=== PATIENT | male | born 1945 | race Caucasian/White ===

== ENCOUNTER 2023-04-29 15:52 | Observation (INO) | payer MEDICARE, MEDICAID, SELFPAY ==
[2023-04-29] VITALS (10 sets, daily range): BP systolic 97–143; BP diastolic 64–90; PULSE 108–133; RESP 18–20; TEMP 36.6–36.8; O2SAT 93–97; BMI 41.9
--- NOTE | 2023-04-29 16:03 | XRR_ITS ---
PROCEDURE INFORMATION: Exam: XR Chest Exam date and time: 04/29/2023 4:07 PM Age: 77 years old Clinical indication: Shortness of breath; Additional info: SOB TECHNIQUE: Imaging protocol: Radiologic exam of the chest. Views: 1 view. COMPARISON: No relevant prior studies available. FINDINGS: Lungs: Shallow lung volumes. Bibasilar opacities are noted, more prominent laterally than medially. Pleural spaces: No large pleural effusion evident. Heart/Mediastinum: Cardiomediastinal silhouette does not appear enlarged allowing for AP portable shallow inspiratory technique. Bones/joints: No acute osseous abnormality identified. XR/XR chest 1V portable [id number] IMPRESSION: 1. Examination limited by shallow inspiratory depth. 2. Bibasilar pulmonary opacities , which may relate to atelectasis, pneumonia, or aspiration. Clinical correlation recommended, follow-up radiographs are recommended to confirm clearance.
--- NOTE | 2023-04-29 16:03 | ECG_ITS ---
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 Measurements Intervals [place] Rate: 128 P: 0 AR: 0 QRS: -19 QRSD: 108 T: 235 QT: 334 QTc: 489 Interpretive Statements ATRIAL FLUTTER WITH RAPID VENTRICULAR RESPONSE LOW QRS VOLTAGE IN PRECORDIAL LEADS [QRS DEFLECTION < 1.0 mV IN CHEST LEADS] POSSIBLE ANTERIOR MYOCARDIAL INFARCTION , OF INDETERMINATE AGE [30 ms Q WAVE IN V3/V4, OR R < 0.2 mV IN V4] MODERATE T-WAVE ABNORMALITY, CONSIDER INFERIOR ISCHEMIA [-0.1+ mV T-WAVE IN II/aVF] No previous ECG available for comparison Electronically Signed On 04-30-2023 8:18:05 HOTEL RECEPTIONIST by Shankar Covington M.D. [id number]
--- NOTE | 2023-04-29 16:04 | W.ED.SOB ---
HPI - SOB/Dyspnea General: Chief Complaint: Shortness of Breath/Dyspnea Stated Complaint: SOB; COUCH Time Seen by Provider: 04/29/23 15:53 Source: patient and EMS Mode of arrival: EMS Limitations: no limitations History of Present Illness: HPI Narrative: This patient was transported from [facility] where he normally lives for increasing shortness of breath wheezing cough over the past several days. He has not any recent chest pain or fevers that he is aware. He states he had decreased appetite. He denies any abdominal pain nausea, vomiting, diarrhea. He has a history of CHF as well as coronary artery disease. He also has underlying history of COPD. He is unaware of any other illness in the long-term [facility] facility at this time. He states he has received a flu vaccine in [employer] this past year. States his last hospitalization for respiratory problems was over a year ago. MD elicited complaint: shortness of breath and cough Pertinent past history: COPD Known history of: COPD Associated symptoms: Deny abdominal pain, chest pain, extremity pain, fever(s), nausea, palpitations, polydipsia, polyuria, syncope or vomiting Review of Systems Const: Denies: fever(s) or chills Eyes: Denies: change in vision ENMT: Denies: throat pain, odynophagia, nasal discharge or nasal congestion Card: Denies: chest pain, palpitations, irregular heart rhythm, syncope or pre-syncope Resp: Reports: dyspnea, productive cough and wheezing GI: Denies: abdominal pain, nausea, vomiting or diarrhea : Denies: flank pain, difficulty urinating, dysuria or urinary frequency Musc: Denies: neck pain, back pain, extremity pain or extremity swelling Skin/Breast: Denies: rash Neuro: Denies: headache(s), numbness in extremities or weakness in extremities Psych: Denies: anxiety or depression Endo: Denies: polyuria or polydipsia Physical Exam Narrative: EXAM NARRATIVE: The patient is alert he makes good eye contact speaks in goal-directed sentences and fluent fashion Const: COMMON NORMALS: no acute distress, patient oriented x3 and alert GENERAL APPEARANCE: cooperative NUTRITIONAL APPEARANCE: obese and overweight HENMT: COMMON NORMALS: normocephalic, Normal nasal mucous membranes and turbinates present, moist oral mucous membranes and oropharynx normal HEAD & SCALP: normocephalic NOSE: Normal nasal mucous membranes and turbinates present Eye: COMMON NORMALS: Equal, round and reactive pupils present, EOMs intact bilaterally, conjunctivae normal and no scleral icterus CONJUNCTIVA: Yes conjunctivae normal PUPIL: Yes Equal, round and reactive pupils present Neck/C-Spine: COMMON NORMALS: full ROM, no JVD and Thyroid normal THYROID: Thyroid normal Chest: COMMONS NORMALS: normal inspection of the chest and normal palpation of entire chest wall Resp: COMMON NORMALS: No retractions and No use of accessory muscles AUSCULTATION: rhonchi, wheezes and diminished lung sounds bilateral Cardio: COMMON NORMALS: no JVD, regular rhythm, No murmurs present (Cardio) and Peripheral pulses 2+ throughout RATE: tachycardic RHYTHM: regular rhythm PERIPHERAL PULSES: Peripheral pulses 2+ throughout GI: COMMON NORMALS: Normal to inspection, nondistended, normoactive bowel sounds present, Soft to palpation and non-tender PALPATION: Yes Soft to palpation : COMMON NORMALS: Yes no CVA tenderness BLADDER/KIDNEY EXAM: Yes no CVA tenderness Back/Pelvis: COMMON NORMALS: no CVA tenderness, thoracic and lumbar spine normal to inspection, no thoracic nor lumbar tenderness and thoraco-lumbar ROM normal Extremity: COMMON NORMALS: normal to inspection, full ROM, capillary refill normal, no calf tenderness and no pedal edema Neuro: COMMON NORMALS: patient oriented x3, moves all extremities, no focal motor deficits and no sensory deficits noted SENSORIUM/ORIENTATION: Yes alert CRANIAL NERVES: Yes CN normal except as noted Psych: COMMON NORMALS: mental status grossly normal Skin: COMMON NORMALS: no rashes or lesions noted, no wounds, turgor normal and no petechiae GENERAL SKIN EXAM: no rashes or lesions noted and turgor normal Course Reevaluation(s): Reevaluation #1: Reevaluated the patient he still has coarse rhonchi but the wheezes are now cleared. Heart rate still remains elevated consistent with atrial fibrillation with a rapid ventricular response. Review of his medication list from his long-term care facility reveals that he apparently only takes a low-dose of beta-ziyad and no other cardiotonic medications. Not clear whether his current respiratory status is contributing to his increased ventricular response or he is just not sufficiently rate controlled normally. His initial troponin is slightly elevated over baseline and is NT proBNP is also slightly elevated so we will go ahead and endeavor to get better rate control. Patient not usually oxygen requiring so therefore we will undoubtedly need admission for further treatment and evaluation of this condition. Time: 19:22 Reevaluation #2: Single dose of low-dose diltiazem has controlled his ventricular response. Whether or not he will need additional dosing is not clear but we will follow on with an oral dose to help continue rate control. He does take Eliquis for stroke risk reduction. Time: 19:53 Consultations: Consultation #1: Talked with the overnight hospitalist discussed his case and he agreed to admit the patient for continued and continued care and further evaluation of his condition. Time: 20:00 Vital Signs: Vital signs: Vital Signs Temperature 98.3 F 04/29/23 15:55 Pulse Rate 123 H 04/29/23 19:42 Respiratory Rate 20 H 04/29/23 16:19 Blood Pressure 143/90 04/29/23 19:42 Pulse Oximetry 96 04/29/23 19:42 Oxygen Delivery Me thod Nasal Cannula 04/29/23 19:42 Oxygen Flow Rate 3 04/29/23 19:42 MDM - SOB/Dyspnea Medical Decision Making This patient was transported by EMS from his long-term care facility. He apparently did experience symptoms of shortness of breath over the approximately 3 days prior to presentation. He is does not have a history of being seen at this facility. He does have a known history of chronic atrial fibrillation as well as COPD and congestive heart failure. He has had no concomitant fevers chills or known exposure to infectious disease. He does live in a long-term care facility. Clinical examination revealed him to be alert but oxygen requiring. He also was noted to have tachycardia consistent with atrial fibrillation with a rapid ventricular response. He received a beta agonist treatment prior to arrival. His evaluation noted clinical findings suggest some associated bronchospasm and adventitious sounds at the bases of both lungs. No other significant clinical findings on initial exam. Workup ensued to evaluate for possible ACS, CHF, pneumonia in addition to obvious oxygen requiring COPD at this time. He also had rapid ventricular response noted with underlying atrial fibrillation without any ischemia. Initial radiographs were nonspecific showing some bibasilar atelectasis. Initial troponin was slightly elevated but did not likely represent ischemic changes of ACS etc. as he had no acute EKG changes, no chest pain and did have a etiology likely in his rapid ventricular rate. BNP was elevated but again no baseline is known for this patient and he did not necessarily suggest CHF but certainly could have a component of that given his rapid ventricular response. He was noted to be on Eliquis for stroke risk reduction. He was given a dose of steroids, a additional beta agonist with anticholinergic, and a rate controlling medication to help control his symptoms. [place] because of the constellation of symptoms, unclear clinical picture of mixed COPD, possible rate related cardial injury, possible pneumonia that he would be best served particular with his oxygen requirement as an inpatient for further evaluation and care. Medical Records I reviewed the patient's medical records. Did review the patient's records from the [facility]. There is no records from prior visits to at this facility. He does have a history of COPD, atrial fibrillation but does not use oxygen. He does take Eliquis for stroke risk reduction. Lab Data I reviewed the patient's lab results. 04/29/23 16:32 04/29/23 16:32 Labs/Radiology: Radiology Impressions Chest X-Ray 04/29/23 16: IMPRESSION: 1. Examination limited by shallow inspiratory depth. 2. Bibasilar pulmonary opacities , which may relate to atelectasis, pneumonia, or aspiration. Clinical correlation recommended, follow-up radiographs are recommended to confirm clearance. Laboratory Results WBC 9.12 10^3/uL (3.29-11.43) 04/29/23 16:32 RBC 4.77 10^6/uL (3.85-5.65) 04/29/23 16:32 Hgb 12.20 g/dL (11.27-16.99) 04/29/23 16:32 Hct 39.9 % (37-53) 04/29/23 16:32 MCV 83.6 fl (82-101) 04/29/23 16:32 MCH 25.6 pg (27-33) L 04/29/23 16:32 MCHC 30.6 g/dL (30-55) 04/29/23 16:32 RDW 14.7 % (12.1-15.1) 04/29/23 16:32 Plt Count 286 10^3/cmm (157-399) 04/29/23 16:32 MPV 9.7 fL (7.4-10.4) 04/29/23 16:32 Neut % (Auto) 69.7 % 04/29/23 16:32 Lymph % (Auto) 18.9 % 04/29/23 16:32 [place] % (Auto) 10.6 % 04/29/23 16:32 Eos % (Auto) 0.3 % 04/29/23 16:32 Baso % (Auto) 0.2 % 04/29/23 16:32 Neut # (Auto) 6.35 10^3/uL (1.8-7.7) 04/29/23 16:32 Lymph # (Auto) 1.7 10^3/uL (0.8-4.8) 04/29/23 16:32 [place] # (Auto) 1.0 10^3/uL (0.2-0.9) H 04/29/23 16:32 Eos # (Auto) 0.0 10^3/uL (0.0-0.8) 04/29/23 16:32 Baso # (Auto) 0.0 10^3/uL (0.0-0.1) 04/29/23 16:32 Nucleated RBC % (auto) 0 % 04/29/23 16:32 Nucleated RBCs # 0.0 /100WBC 04/29/23 16:32 Sodium 135 mmol/L (136-145) L 04/29/23 16:32 Potassium 3.8 mmol/L (3.5-5.1) 04/29/23 16:32 Chloride 98 mmol/L (98-107) 04/29/23 16:32 Carbon Dioxide 21 mmol/L (22-29) L 04/29/23 16:32 Anion Gap 19.8 (5-19) H 04/29/23 16:32 BUN 11 mg/dL (8-23) 04/29/23 16:32 Creatinine 1.0 mg/dL (0.7-1.2) 04/29/23 16:32 GFR Calculation Not Reportable 04/29/23 16:32 Glucose 232 mg/dL (65-115) H 04/29/23 16:32 Calculated Osmolality 287 mOsm/kg (285-295) 04/29/23 16:32 Lactic Acid 1.8 mmol/L (0.5-2.2) 04/29/23 16:32 Calcium 8.7 mg/dL (8.5-10.5) 04/29/23 16:32 Total Bilirubin 1.0 mg/dL (0.15-1.2) 04/29/23 16:32 AST 18 U/L (0-40) 04/29/23 16:32 ALT 11 U/L (0-41) 04/29/23 16:32 Alkaline Phosphatase 84 U/L (40-130) 04/29/23 16:32 Troponin T Baseline 20 ng/L (0-15) H 04/29/23 16:32 Troponin T 120 Minute 17.56 ng/L (0-15) H 04/29/23 19:14 Delta Troponin T -2.44 ABS# (0-10) L 04/29/23 19:14 NT-Pro-B Natriuret Pep 1421 pg/mL (0-450) H 04/29/23 16:32 Total Protein 7.4 g/dL (6.6-8.7) 04/29/23 16:32 Albumin 4.0 g/dL (3.5-5.2) 04/29/23 16:32 Globulin 3.4 g/dL (1.3-4.6) 04/29/23 16:32 Influenza Type A Ag negative (Negative) 04/29/23 16:24 Influenza Type B Ag negative (Negative) 04/29/23 16:24 SARS-CoV-2 Ag (Rapid) negative (Negative) 04/29/23 16:24 All radiology interpretation(s) finalized by discharge EKG Data EKG 1: I personally reviewed and interpreted this EKG as follows: Interpretation: Patient's EKG reveals a ventricular rate of 128 bpm. Underlying rhythm appears to be atrial fibrillation with rapid ventricular response. Normal QRS duration, corrected QT interval. Nonspecific ST-T wave changes noted. No prior tracing available in this department for review. Discharge Plan Discharge Patient Disposition: Admitted As Inpatient Clinical Impression: Acute exacerbation of chronic obstructive airways disease, Atrial fibrillation, chronic Condition: Stable Coding Level of Care Code ED Integrated Pest Management Technician for Josette Agosto
[2023-04-29] MEDS: ipratropium-albuterol 3 mL Neb INHALATION (16:18)
[2023-04-29] MEDS: methylPREDNISolone sod succ 125 mg/2 mL INJ IV (16:22)
[2023-04-29 16:44] LABS: Basophils % 0.2 %; Eosinophils % 0.3 %; Hematocrit 39.9 % (37-53); Lymphocytes # 1.7 10^3/uL (0.8-4.8); Lymphocytes % 18.9 %; Mean Corpuscular HGB Conc 30.6 g/dL (30-55); Mean Corpuscular Hemoglobin 25.6 pg (27-33); Mean Corpuscular Volume 83.6 fl (82-101); Mean Platelet Volume 9.7 fL (7.4-10.4); Monocytes % 10.6 %; Neutrophils # 6.35 10^3/uL (1.8-7.7); Neutrophils % 69.7 %; Nucleated Red Blood Cells % 0 %; Platelet Count 286 10^3/cmm (157-399); Red Blood Count 4.77 10^6/uL (3.85-5.65); Red Cell Distribution Width 14.7 % (12.1-15.1); White Blood Count 9.12 10^3/uL (3.29-11.43)
[2023-04-29 16:57] LABS: Influenza A by IFA negative (Negative); Influenza B by IFA negative (Negative); SARS Covid-2 Antigen negative (Negative)
[2023-04-29 16:59] LABS: Troponin(5th) Baseline 20 ng/L (0-15)
[2023-04-29 17:02] LABS: Lactic Sepsis W/Reflex 1.8 mmol/L (0.5-2.2)
[2023-04-29 17:12] LABS: Alanine Aminotransferase 11 U/L (0-41); Alkaline Phosphatase 84 U/L (40-130); Anion Gap 19.8 (5-19); Aspartate Amino Transferase 18 U/L (0-40); Blood Urea Nitrogen 11 mg/dL (8-23); Calcium 8.7 mg/dL (8.5-10.5); Carbon Dioxide 21 mmol/L (22-29); Chloride 98 mmol/L (98-107); Globulin 3.4 g/dL (1.3-4.6); Glucose 232 mg/dL (65-115); NT Pro B Type Natriuretic Pept 1421 pg/mL (0-450); Osmolality Calculated 287 mOsm/kg (285-295); Potassium 3.8 mmol/L (3.5-5.1); Sodium 135 mmol/L (136-145); Total Protein 7.4 g/dL (6.6-8.7)
[2023-04-29] MEDS: dilTIAZem 5 mg/mL SDV 5 mL 10 MG IVP (19:29)
[2023-04-29 19:43] LABS: Troponin 5 2HR 17.56 ng/L (0-15); Troponin 5 2HR Delta -2.44 ABS# (0-10)
[2023-04-29] MEDS: dilTIAZem 30 mg Tablet PO ×2 (20:07→21:37)
--- NOTE | 2023-04-29 20:36 | P.HP_ITS ---
Providers/Chief Complaint 2 Admitting Physician: Nhung Powell MD Chief Complaint: SOB; COUCH History of Present Illness Stoney Gamboa is a 77 year old male from [facility], presented with chief complaint of shortness of breath. Patient stating that for last couple days he has been experiencing orthopnea PND, nonproductive cough, he has not noticed any chest pain or fever. He does experience loose stools intermittently. No active nausea vomiting abdominal pain At baseline does not require oxygen currently in the ER he is requiring 3 L of oxygen, he was in A-fib RVR he takes Eliquis and very low-dose of AV nelson blocking agent at the facility Review of Systems 2 Const: Denies: fever(s) Eyes: Denies: change in vision ENMT: Denies: throat pain Card: Reports: dyspnea on exertion and orthopnea; Denies: chest pain Resp: Reports: dyspnea GI: Denies: abdominal pain Medications/Allergies Allergies Allergy/AdvReac Type Severity Reaction Status Date / Time No Known Allergies Allergy Verified 04/29/23 16:03 PFSH Acute 2 PFSH: Medical History (Updated 04/29/23 @ 20:42 by Nhung Powell MD) Atrial fibrillation, chronic Vitals/I&O/Wt Last Vital Signs Temp 98.3 F 04/29/23 15:55 Pulse 123 H 04/29/23 19:42 Resp 20 H 04/29/23 16:19 BP 143/90 04/29/23 19:42 Pulse Ox 96 04/29/23 19:42 O2 Del Method Nasal Cannula 04/29/23 19:42 O2 Flow Rate 3 04/29/23 19:42 Weight last 48 hrs Weight 125.191 kg Physical Exam 2 Narrative: Pleasant cooperative male GCS 15 Currently on 3 L Abdomen soft No audible stridor or wheezing Low extremity no edema Nonfocal neuro exam No active chest pain Nontender distended abdomen A-fib RVR Data 04/29/23 16:32 04/29/23 16:32 A&P Assessment and plan (1) Acute exacerbation of chronic obstructive airways disease: (2) Atrial fibrillation with RVR: Plan Paroxysmal A-fib Continue Eliquis which he takes at baseline Add Cardizem 30 mg every 6 hours Check B12 and TSH keep magnesium above 2 and potassium above 4 Acute COPD exacerbation Requiring 2 L Does not use oxygen at the facility Check D-dimer Active wheezing or significant stridor or wheezing Start ceftriaxone and azithromycin for possibility of lower lobe infiltrate Patient is afebrile No sign of sepsis Full code Cardiac diet DVT prophylaxis on board Attestations 2 Medical Necessity Statement*: Anticipating discharge within 48 hours Diagnoses Acute exacerbation of chronic obstructive airways disease J44.1 Atrial fibrillation with RVR I48.91
[2023-04-29 20:57] LABS: D Dimer 1.96 ug/mLFEU (0-0.59)
[2023-04-29 21:07] LABS: Procalcitonin 0.08 ng/mL (0-0.5)
[2023-04-29 21:22] LABS: Estmated Average Glucose 200; Hemoglobin A1C 8.6 % (4.0-6.0)
[2023-04-29 21:37] LABS: Vitamin B12 319 pg/mL (232-1245)
[2023-04-29] MEDS: heparin 5,000 unit/mL INJ 1 mL 5000 UNIT SUBCUT (21:37)
[2023-04-29] MEDS: apixaban 5 mg Tablet PO (21:37)
[2023-04-29 22:28] LABS: Troponin 5 6HR 15.84 ng/L (0-15); Troponin 5 6HR Delta -4.16 ng/L (0-12)
[2023-04-30] VITALS (8 sets, daily range): BP systolic 109–144; BP diastolic 67–76; PULSE 91–122; RESP 16–20; TEMP 36.3–36.7; O2SAT 93–98
[2023-04-30] MEDS: dilTIAZem 30 mg Tablet PO ×4 (02:04→22:05)
[2023-04-30 03:44] LABS: Basophils % 0.2 %; Hematocrit 39.9 % (37-53); Lymphocytes # 0.6 10^3/uL (0.8-4.8); Lymphocytes % 8.6 %; Mean Corpuscular HGB Conc 30.3 g/dL (30-55); Mean Corpuscular Hemoglobin 25.6 pg (27-33); Mean Corpuscular Volume 84.4 fl (82-101); Mean Platelet Volume 10.1 fL (7.4-10.4); Monocytes # 0.1 10^3/uL (0.2-0.9); Monocytes % 1.7 %; Nucleated Red Blood Cells % 0 %; Platelet Count 288 10^3/cmm (157-399); Red Blood Count 4.73 10^6/uL (3.85-5.65); Red Cell Distribution Width 14.9 % (12.1-15.1); White Blood Count 6.51 10^3/uL (3.29-11.43)
[2023-04-30 04:01] LABS: Anion Gap 22.1 (5-19); Blood Urea Nitrogen 14 mg/dL (8-23); C Reactive Protein 249.2 mg/L (0.0-4.9); Carbon Dioxide 19 mmol/L (22-29); Chloride 96 mmol/L (98-107); Glucose 405 mg/dL (65-115); Osmolality Calculated 294 mOsm/kg (285-295); Phosphorus 3.3 mg/dL (2.5-4.5); Potassium 4.1 mmol/L (3.5-5.1); Sodium 133 mmol/L (136-145)
--- NOTE | 2023-04-30 09:00 | CT_ITS ---
WS: [id number] CT CHEST ANGIOGRAPHY WITH REFORMATS HISTORY: r/o pe TECHNIQUE: Contiguous axial images are obtained through the chest during arterial injection of intrav enous contrast. Images are reconstructed to evaluate the pulmonary arteries. MIP imaging also reviewe d. All CT scans at [facility] use at least one of these dose optimization techniques: automat ed exposure control; mA and/or kV adjustment per patient size (includes targeted exams where dose is matched to clinical indication); or iterative reconstruction. CONTRAST: Omnipaque 350; 100 mL IV. DLP: 629.60 mGy.cm COMPARISON: None available. Limited evaluation of the pulmonary arteries. Lung volumes are decreased. Centrally there is no pulmo nary embolism. The opacification of the arteries becomes limited beyond the lobar branches. Cannot ex clude pulmonary emboli distal to the segmental branches. Pulmonary artery is dilated. Mild atheroscle rosis aorta. LEFT heart chambers are enlarged. There is slight flattening of the intraventricular sep cristian. There is hazy attenuation throughout both lungs from pulmonary edema. The poor inspiration is also co ntributing to the crowding of the lung markings. No dense areas of consolidation. Focal irregular con solidation at the RIGHT lung base. No pericardial or pleural effusions. Mediastinal and hilar promin ent lymphoid tissue is probably reactive. Hepatic steatosis. No adrenal mass. IMPRESSION: 1. Suboptimal evaluation of the pulmonary arteries. There is no central pulmonary emboli. 2. Limited opacification of the pulmonary arteries distal to the segmental branches. Distal pulmonary emboli cannot be excluded. 3. Pulmonary artery is dilated. 4. Moderate cardiomegaly. 5. Mildly prominent lymphoid tissue at the hilar region suggesting a mildly reactive process. 6. Consolidation at the RIGHT lung base is probably atelectasis. Consider follow-up chest CT imaging after patient's acute illness resolves to be sure there is no underlying mass.
[2023-04-30] MEDS: FUROsemide 10 mg/mL SDV 10mL 60 MG IVP (10:18)
[2023-04-30] MEDS: azithromycin 250 mg Tablet 500 MG PO (10:21)
[2023-04-30] MEDS: cefTRIAXone 1,000 MG in sodium chloride 0.9% (plus) 50 ML 100 MG IV (10:22)
[2023-04-30] MEDS: apixaban 5 mg Tablet PO ×2 (10:24→22:05)
[2023-04-30] MEDS: iohexol 350 mg/mL 500 mL Btl (per mL) IV (12:54)
--- NOTE | 2023-04-30 13:40 | P.PN_ITS ---
Subjective 2 Subjective: seen today states he is feeling slightly better than when he first got admitted. Denies shortness of breath. States he is not on any oxygen at home. Vitals/I&O/Wt Last Vital Signs Temp 97.7 F 04/30/23 11:58 Pulse 117 H 04/30/23 11:58 Resp 16 04/30/23 11:58 BP 122/67 04/30/23 11:58 Pulse Ox 94 04/30/23 11:58 O2 Del Method Nasal Cannula 04/30/23 11:58 O2 Flow Rate 3 04/30/23 10:04 04/29/23 04/30/23 04/30/23 22:59 06:59 14:59 Intake Total 530 / 530 Output Total 100 / 100 300 / 400 1000 / 1000 Balance -100 / -100 -300 / -400 -470 / -470 Weight last 48 hrs Weight 125.191 kg Physical Exam 2 Narrative: Pleasant cooperative male GCS 15 Currently on 3 L Abdomen soft No audible stridor or wheezing Low extremity no edema Nonfocal neuro exam No active chest pain Nontender distended abdomen A-fib RVR Data 04/30/23 02:28 04/30/23 02:28 Micro: Microbiology 04/29/23 21:25 Legionella Urinary Antigen - Final Urine,Voided A&P Assessment and plan (1) Acute exacerbation of chronic obstructive airways disease: (2) Atrial fibrillation with RVR: Plan A-fib with RVR Continue Eliquis which he takes at baseline continue Cardizem 30 every 6 hours Uptitrate home beta-ziyad. Lopressor 25 twice daily added today. Continue to monitor on telemetry Check B12 and TSH keep magnesium above 2 and potassium above 4 Acute COPD exacerbation Requiring 3 L Does not use oxygen at the facility D-dimer elevated at 1.96. Check CTA chest to rule out pulmonary embolism. I am aware patient is on Eliquis 5 twice daily. Active wheezing or significant stridor or wheezing Continue ceftriaxone and azithromycin. Patient is afebrile No sign of sepsis DuoNeb every 6 hours as needed. Diabetes mellitus t2, insulin-dependent, peripheral neuropathy Continue Levemir 10 units daily Hold glipizide during hospital stay Sliding scale insulin moderate dose intensity Continue to monitor blood sugars ACHS Continue gabapentin Chronic congestive heart failure, most likely diastolic, unspecified ? Continue Lasix 40 daily at discharge however at this time diuresis with 60 IV daily. No echo on file. Full code Cardiac diet DVT prophylaxis on board Attestations 2 Medical Necessity Statement*: Anticipate discharge in next 24 to 48 hours. Diagnoses Acute exacerbation of chronic obstructive airways disease J44.1 Atrial fibrillation with RVR I48.91
[2023-04-30] MEDS: metoprolol tartrate 25 mg Tablet PO ×2 (14:44→22:05)
[2023-04-30] MEDS: methylPREDNISolone sod succ 40 mg/mL INJ IVP (14:44)
[2023-04-30] MEDS: gabapentin 300 mg Capsule PO ×2 (16:23→22:04)
[2023-04-30] MEDS: tamsulosin 0.4 mg Capsule PO (17:54)
[2023-04-30 21:40] LABS: Glucose Point of Care 528 mg/dL (70-110)
[2023-04-30] MEDS: insulin regular-human 15 UNIT in SYRINGE 1 EACH IVP (22:00)
[2023-04-30] MEDS: sodium chloride 0.9% 1,000 ML 999 ML IV (22:03)
[2023-04-30] MEDS: acetaminophen 500 mg Tablet PO (22:04)
[2023-04-30 22:13] LABS: Glucose Point of Care > 600 mg/dL (70-110)
[2023-04-30 22:25] LABS: Glucose Point of Care 491 mg/dL (70-110)
[2023-04-30] MEDS: insulin glargine 100 units/1 mL 10 UNIT SUBCUT (22:30)
--- NOTE | 2023-04-30 23:13 | PC.NURSE ---
Dr. Powell notified at 2139 of blood sugar of 528. Orders recieved for 15 units regular insulin IVP, 1 liter ns bolus, discontinue steroids, and also give scheduled lantus .
[2023-04-30 23:57] LABS: Glucose Point of Care 425 mg/dL (70-110)
[2023-05-01] VITALS (8 sets, daily range): BP systolic 112–133; BP diastolic 66–77; PULSE 74–102; RESP 17–18; TEMP 36.4–36.6; O2SAT 90–98
[2023-05-01] MEDS: insulin lispro 100 unit/1 mL 20 UNIT SUBCUT (00:32)
--- NOTE | 2023-05-01 01:50 | PC.NURSE ---
Patient's blood sugar was [address] Powell ordered 20 units humalog subcutaneous.
[2023-05-01 01:59] LABS: Glucose Point of Care 423 mg/dL (70-110)
[2023-05-01 02:45] LABS: Ketone (Acetest) Serum Negative (Negative)
[2023-05-01 03:48] LABS: Glucose Point of Care 347 mg/dL (70-110)
[2023-05-01] MEDS: dilTIAZem 30 mg Tablet PO ×2 (03:57→10:02)
[2023-05-01] MEDS: insulin regular-human 10 UNIT in SYRINGE 1 EACH IVP (04:15)
[2023-05-01 05:10] LABS: Glucose Point of Care 325 mg/dL (70-110)
[2023-05-01 05:13] LABS: Basophils % 0.1 %; Hematocrit 37.8 % (37-53); Lymphocytes # 0.6 10^3/uL (0.8-4.8); Lymphocytes % 8.2 %; Mean Corpuscular HGB Conc 30.4 g/dL (30-55); Mean Corpuscular Hemoglobin 25.6 pg (27-33); Mean Corpuscular Volume 84.2 fl (82-101); Mean Platelet Volume 10.1 fL (7.4-10.4); Monocytes # 0.2 10^3/uL (0.2-0.9); Neutrophils # 7.01 10^3/uL (1.8-7.7); Neutrophils % 89.3 %; Nucleated Red Blood Cells % 0 %; Platelet Count 304 10^3/cmm (157-399); Red Blood Count 4.49 10^6/uL (3.85-5.65); Red Cell Distribution Width 14.7 % (12.1-15.1); White Blood Count 7.85 10^3/uL (3.29-11.43)
[2023-05-01 05:42] LABS: Alanine Aminotransferase 11 U/L (0-41); Albumin Level 3.4 g/dL (3.5-5.2); Alkaline Phosphatase 74 U/L (40-130); Anion Gap 15.7 (5-19); Aspartate Amino Transferase 19 U/L (0-40); Blood Urea Nitrogen 22 mg/dL (8-23); Calcium 9.1 mg/dL (8.5-10.5); Carbon Dioxide 23 mmol/L (22-29); Chloride 99 mmol/L (98-107); Globulin 3.6 g/dL (1.3-4.6); Glucose 361 mg/dL (65-115); Magnesium 2.2 mg/dL (1.7-2.3); Osmolality Calculated 296 mOsm/kg (285-295); Potassium 3.7 mmol/L (3.5-5.1); Sodium 134 mmol/L (136-145); Total Bilirubin 0.4 mg/dL (0.15-1.2)
[2023-05-01 07:04] LABS: Glucose Point of Care 321 mg/dL (70-110)
[2023-05-01] MEDS: ipratropium-albuterol 3 mL Neb INHALATION (07:56)
[2023-05-01 09:43] LABS: C Reactive Protein 128.9 mg/L (0.0-4.9)
[2023-05-01] MEDS: cefTRIAXone 1,000 MG in sodium chloride 0.9% (plus) 50 ML 100 MG IV (10:00)
[2023-05-01] MEDS: azithromycin 250 mg Tablet 500 MG PO (10:01)
[2023-05-01] MEDS: gabapentin 300 mg Capsule PO (10:01)
[2023-05-01] MEDS: metoprolol tartrate 25 mg Tablet PO (10:01)
[2023-05-01] MEDS: atorvastatin 40 mg Tablet PO (10:01)
[2023-05-01] MEDS: sertraline 50 mg Tablet PO (10:01)
[2023-05-01] MEDS: apixaban 5 mg Tablet PO (10:02)
[2023-05-01] MEDS: FUROsemide 10 mg/mL SDV 10mL 60 MG IVP (10:45)
[2023-05-01 11:26] LABS: Glucose Point of Care 381 mg/dL (70-110)
--- NOTE | 2023-05-01 11:59 | PM.DCS ---
Discharge Providers Date of Admission: 04/29/23 20:02 Date of Discharge: May 01, 2023 Attending Provider at Admission: Nhung Powell MD Attending Provider at Discharge: Niyah Blancas MD Diagnoses at Discharge Discharge Diagnosis (1) Acute exacerbation of chronic obstructive airways disease: Status: Acute (2) Atrial fibrillation with RVR: Status: Acute Reason for Visit Reason for Visit: SOB; COU Hospital Course Hospital Course Patient was admitted for A-fib with RVR and acute COPD exacerbation. CTA chest negative for PE. Patient on Eliquis at home. He was on ceftriaxone azithromycin during hospital stay. Cardizem 30 every 6 hours was added beta-ziyad was uptitrated. He also had hyperglycemia during hospital stay requiring large doses of insulin. He was on steroids during hospital stay. At discharge his insulin Lantus has been increased to 15 units. He was advised to check blood sugar any further adjustments with discussion with the primary care physician. Patient put back on his home Lasix dose at discharge. Physical Exam Narrative: Pleasant cooperative male GCS 15 Currently on 2 L Abdomen soft No audible stridor or wheezing Low extremity no edema Nonfocal neuro exam No active chest pain Nontender distended abdomen Clear to auscultation bilaterally no wheezes no rhonchi. Discharge Data Studies Completed and Pending Completed Studies During Hospitalization Category Date Time Status CT PE [CT angio chest PE protcl [id number]] Routine Cat Scan 04/30/23 09:00 Completed XR chest 1V portable [id number] Stat Exams 04/29/23 16:03 Completed Radiology Impressions Chest X-Ray 04/29/23 16:03 IMPRESSION: 1. Examination limited by shallow inspiratory depth. 2. Bibasilar pulmonary opacities , which may relate to atelectasis, pneumonia, or aspiration. Clinical correlation recommended, follow-up radiographs are recommended to confirm clearance. Laboratory Results WBC 7.85 10^3/uL (3.29-11.43) 05/01/23 04:23 RBC 4.49 10^6/uL (3.85-5.65) 05/01/23 04:23 Hgb 11.50 g/dL (11.27-16.99) 05/01/23 04:23 Hct 37.8 % (37-53) 05/01/23 04:23 MCV 84.2 fl (82-101) 05/01/23 04:23 MCH 25.6 pg (27-33) L 05/01/23 04:23 MCHC 30.4 g/dL (30-55) 05/01/23 04:23 RDW 14.7 % (12.1-15.1) 05/01/23 04:23 Plt Count 304 10^3/cmm (157-399) 05/01/23 04:23 MPV 10.1 fL (7.4-10.4) 05/01/23 04:23 Neut % (Auto) 89.3 % 05/01/23 04:23 Lymph % (Auto) 8.2 % 05/01/23 04:23 [place] % (Auto) 2.0 % 05/01/23 04: Eos % (Auto) 0.0 % 05/01/23 04: Baso % (Auto) 0.1 % 05/01/23 04: Neut # (Auto) 7.01 10^3/uL (1.8-7.7) 05/01/23 04:23 Lymph # (Auto) 0.6 10^3/uL (0.8-4.8) L 05/01/23 04:23 [place] # (Auto) 0.2 10^3/uL (0.2-0.9) 05/01/23 04:23 Eos # (Auto) 0.0 10^3/uL (0.0-0.8) 05/01/23 04:23 Baso # (Auto) 0.0 10^3/uL (0.0-0.1) 05/01/23 04:23 Nucleated RBC % (auto) 0 % 05/01/23 04: Nucleated RBCs # 0.0 /100WBC 05/01/23 04:23 D-Dimer 1.96 ug/mLFEU (0-0.59) H 04/29/23 16:32 Sodium 134 mmol/L (136-145) L 05/01/23 04:23 Potassium 3.7 mmol/L (3.5-5.1) 05/01/23 04:23 Chloride 99 mmol/L (98-107) 05/01/23 04:23 Carbon Dioxide 23 mmol/L (22-29) 05/01/23 04:23 Anion Gap 15.7 (5-19) 05/01/23 04:23 BUN 22 mg/dL (8-23) 05/01/23 04:23 Creatinine 0.8 mg/dL (0.7-1.2) 05/01/23 04:23 GFR Calculation Not Reportable 05/01/23 04:23 Glucose 361 mg/dL (65-115) H 05/01/23 04:23 POC Glucose 381 mg/dL (70-110) H 05/01/23 11:05 Estimat Average Glucose 200 04/29/23 16:32 Hemoglobin A1c 8.6 % (4.0-6.0) H 04/29/23 16:32 Calculated Osmolality 296 mOsm/kg (285-295) H 05/01/23 04:23 Lactic Acid 1.8 mmol/L (0.5-2.2) 04/29/23 16:32 Calcium 9.1 mg/dL (8.5-10.5) 05/01/23 04:23 Phosphorus 3.3 mg/dL (2.5-4.5) 04/30/23 02:28 Magnesium 2.2 mg/dL (1.7-2.3) 05/01/23 04:23 Total Bilirubin 0.4 mg/dL (0.15-1.2) 05/01/23 04:23 AST 19 U/L (0-40) 05/01/23 04:23 ALT 11 U/L (0-41) 05/01/23 04:23 Alkaline Phosphatase 74 U/L (40-130) 05/01/23 04:23 Troponin T Baseline 20 ng/L (0-15) H 04/29/23 16:32 Troponin T 120 Minute 17.56 ng/L (0-15) H 04/29/23 19:14 Delta Troponin T -2.44 ABS# (0-10) L 04/29/23 19:14 Troponin T Hi Sens 6Hr 15.84 ng/L (0-15) H 04/29/23 22:00 Troponin T Hi Sens 6Hr Delta -4.16 ng/L (0-12) L 04/29/23 22:00 C-Reactive Protein 128.9 mg/L (0.0-4.9) H 05/01/23 04:23 NT-Pro-B Natriuret Pep 1421 pg/mL (0-450) H 04/29/23 16:32 Total Protein 7.0 g/dL (6.6-8.7) 05/01/23 04:23 Albumin 3.4 g/dL (3.5-5.2) L 05/01/23 04:23 Globulin 3.6 g/dL (1.3-4.6) 05/01/23 04:23 Vitamin B12 319 pg/mL (232-1245) 04/29/23 19:14 Procalcitonin 0.08 ng/mL (0-0.5) 04/29/23 16:32 TSH 1.50 uIU/mL (0.27-4.20) 04/29/23 19:14 Serum Ketones Negative (Negative) 05/01/23 02:19 Influenza Type A Ag negative (Negative) 04/29/23 16:24 Influenza Type B Ag negative (Negative) 04/29/23 16:24 SARS-CoV-2 Ag (Rapid) negative (Negative) 04/29/23 16:24 Vitals Last Vital Signs Temp 97.7 F 05/01/23 07:27 Pulse 75 05/01/23 11:06 Resp 18 05/01/23 11:06 BP 123/75 05/01/23 11:06 Pulse Ox 96 05/01/23 11:58 O2 Del Method Nasal Cannula 05/01/23 11:06 O2 Flow Rate 2 05/01/23 11:06 Discharge Plan Discharge Patient Disposition: Xfer SNF Condition: Stable Prescriptions: New diltiazem HCl 120 mg capsule,extended release 24hr 120 mg PO DAILY Qty: 30 0RF levofloxacin 750 mg tablet 750 mg PO Q24H 10 Days Qty: 10 0RF Continued furosemide 40 mg tablet 40 mg PO DAILY atorvastatin 40 mg tablet 40 mg PO DAILY sumatriptan succinate 50 mg tablet See Rx Instructions .ROUTE .COMPLEX Rx Instructions: 50 mg orally at on set of headache. May take additional tablet 2 hours later. omeprazole 40 mg capsule,delayed release(DR/EC) 40 mg PO DAILY tramadol 50 mg tablet 50 mg PO BID PRN (Reason: Pain) tamsulosin 0.4 mg capsule 0.4 mg PO QPM gabapentin 300 mg capsule 300 mg PO TID nystatin 100,000 unit/gram powder 1 applic TOPICAL QID insulin lispro [Humalog U-100 Insulin] 100 unit/mL solution See Rx Instructions .ROUTE .COMPLEX Rx Instructions: PER SLIDING SCALE INJECT 4 TIMES DAILY. MAX OF 7 UNITS PER DOSE. sertraline 50 mg tablet 50 mg PO DAILY glipizide 5 mg tablet 5 mg PO DAILY potassium chloride 10 mEq tablet,ER particles/crystals 10 meq PO DAILY Januvia 50 mg tablet 50 mg PO DAILY Eliquis 5 mg tablet 5 mg PO BID Spiriva Respimat 1.25 mcg/actuation mist 1 inh INHALATION BID PRN (Reason: Shortness Of Breath) Changed metoprolol succinate 25 mg tablet extended release 24 hr 25 mg PO DAILY Qty: 30 0RF Levemir U-100 Insulin 100 unit/mL solution 15 unit SUBCUT QAM Qty: 10 0RF Discharge Orders: Discharge Order (Routine); Ordered 05/01/23 Ordered By: Niyah Blancas Other Ambulatory Orders: XR chest 2V insp/exp [id number] (Routine) Timeframe: 6 Weeks Facility: [facility] - Location: Radiology [facility] Ordered By: Niyah Blancas Referrals: Lb Sandoval MD [Physician] - 05/31/23 2:30 pm (atrial fibrillation) Discharge Diet: Cardiac and Diabetic Discharge Activity: Resume usual activity and Oxygen as instructed Patient Instructions: Diltiazem (By mouth), Amoxicillin/Clavulanate Potassium (By mouth) Activity Restrictions/Additional Instructions: Please have a follow-up x-ray in 6 weeks to ensure resolution of right lower lobe pneumonia. Continue to wear 2 L nasal cannula as previously prescribed. Please finish your antibiotics as prescribed. Follow-up with cardiology as an outpatient for atrial fibrillation. Continue to monitor blood sugars and adjust medication accordingly. Please follow-up with your primary care physician within 4 to 7 days of discharge. Discharge Attestations Time Spent in Discharge Care*: greater than 30 min Quality Metrics Clinical Quality Measures [ No reported AMI, CVA or VTE this stay] Coding Level of Care Code Acute Code for g Fwd Diagnoses Acute exacerbation of chronic obstructive airways disease J44.1 Atrial fibrillation with RVR I48.91
--- NOTE | 2023-05-01 12:11 | USCV_ITS ---
Cooper Stoney Age: 77 Gender: M : 1945 Exam Date: 05/01/2023 12:55 Ordering Phys: Niyah Blancas MD Technologist: Mazin Lacey Exam Location: [facility] [place] Indication: PEDAL EDEMA BP: 126 / 72 HR: 77 Rhythm: Sinus Technical Quality: Adequate MEASUREMENTS (Male / Female) Normal Values 2D ECHO LV Diastolic Diameter PLAX 4.3 cm 4.2 - 5.9 / 3.9 - 5.3 cm LV Systolic Diameter PLAX 2.8 cm IVS Diastolic Thickness 1.3 cm 0.6 - 1.0 / 0.6 - 0.9 cm IVS Systolic Thickness 1.9 cm LVPW Diastolic Thickness 1.4 cm 0.6 - 1.0 / 0.6 - 0.9 cm LVPW Systolic Thickness 1.8 cm LVOT Diameter 2.1 cm LV Ejection Fraction 2D Teich 64.9 % LV Ejection Fraction MOD 2C 62.6 % LV Ejection Fraction 2C AL 62.2 % LA Diameter 5.0 cm M-MODE Aortic Annulus Diameter 3.7 cm LA Ao Ratio MM 1.3 MV E Point Septal Separation 1.7 cm DOPPLER AV Peak Velocity 150.0 cm/s LVOT Peak Velocity 74.0 cm/s AV Area Cont Eq vti 2.1 cm squared AV Area Cont Eq pk 1.7 cm squared MV Area PHT 5.0 cm squared Mitral E to A Ratio 2.3 MV E' Velocity 60.5 cm/s Mitral E to MV E' Ratio 7.6 Mitral E to LV E' Lateral Ratio 5.8 Mitral E to LV E' Septal Ratio 11.1 TR Peak Velocity 218.3 cm/s TR Peak Gradient 19.1 mmHg TV Peak E Velocity 78.0 cm/s Right Atrial Pressure 3.0 mmHg Pulmonary Artery Systolic Pressu 22.1 mmHg FINDINGS Left Ventricle Left ventricle is normal in size. LV systolic function is normal with EF 55 to 60%. No regional wall motion abnormalities are seen. Right Ventricle Normal in size and function Right Atrium Normal in size Left Atrium Normal in size Mitral Valve Structurally normal mitral valve. Mild mitral regurgitation. Aortic Valve Aortic valve is thickened. No significant stenosis or regurgitation. Tricuspid Valve Mild tricuspid regurgitation. Insufficient TR jet to calculate RVSP. Pulmonic Valve Not well-visualized. Pericardium Normal Aorta Normal in size IVC Not well visualized CONCLUSIONS LV systolic function is normal with EF of 55 to 60%. Mild mitral regurgitation. Mild tricuspid regurgitation No comparison studies are available. Shankar Covington MD (Electronically Signed) Final Date: 01 May 2023 14:23 S
== END 2023-05-01 14:50 | disposition skilled nursing facility (03) ==
LOC: ER 20:15 → MEDSURG 22:55
PROVIDERS: Admitting Provider Internal Medicine; Emergency Provider Emergency Medicine; Visit Provider Internal Medicine
DX: J44.1 Chronic obstructive pulmonary disease with (acute) exacerbation (principal); I48.20 Chronic atrial fibrillation, unspecified; Z79.01 Long term (current) use of anticoagulants; R79.89 Other specified abnormal findings of blood chemistry; E11.42 Type 2 diabetes mellitus with diabetic polyneuropathy; E11.65 Type 2 diabetes mellitus with hyperglycemia; Z79.4 Long term (current) use of insulin
CPT/HCPCS: 36415; 36416; 71045; 71275; 80048; 80053; 82009; 82607; 82962; 83036; 83605; 83735; 83880; 84100; 84145; 84443; 84484; 85025; 85378; 86140; 87426; 87449; 87804; 93005; 93306; 94640; 94664; 94760; 96365; 96372; 96375; 96376; 99285; G0378; J0696; J1644; J1815; J1940; J2920; J2930; J3490; J7030; Q0144; Q9967